=== PATIENT | male | born 1960 | race Caucasian/White ===

== ENCOUNTER 2020-02-17 12:50 | Emergency (ER) | payer MEDICARE, OTHER, SELFPAY ==
[~2020-02-17] VITALS: Ht 170.2 cm; Wt 99.8 kg
[2020-02-17 13:00] VITALS: BP 181/91
--- NOTE | 2020-02-17 13:05 | NUR ---
PT C/O SORE THROAT AND COUGH FOR 4 DAYS. DENIES FEVER, MYALGIA, N/V/D, OR SICK CONTACT. PMH: HTN, DM
--- NOTE | 2020-02-17 13:27 | NUR ---
NOVEL SWAB COLLECTED AND SENT TO THE TENT.
[2020-02-17 14:13] VITALS: BP 171/81
--- NOTE | 2020-02-17 14:13 | NUR ---
Patient discharged with v/s stable. Written and verbal after care instructions given and explained. Patient verbalized understanding. Ambulatory with steady gait. All questions addressed prior to discharge. Advised to follow up with PMD.
--- NOTE | 2020-02-18 23:15 | NUR ---
Covid results received from lab. Results = postive. Hard copy requested from lab and placed in infection controls mailbox.
== END 2020-02-17 14:13 | disposition home or self-care (01) ==
LOC: MED 12:50
DX: U07.1 COVID-19 (principal); J02.9 Acute pharyngitis, unspecified; E11.9 Type 2 diabetes mellitus without complications; I10 Essential (primary) hypertension
CPT/HCPCS: 99283; U0003

== ENCOUNTER 2022-05-31 15:21 | Emergency (ER) | payer MEDICARE, OTHER ==
[~2022-05-31] VITALS: Ht 152.4 cm; Wt 96.2 kg
[2022-05-31 15:25] VITALS: BP 163/82
--- NOTE | 2022-05-31 15:32 | NUR ---
PT AMB TO BED 11
[2022-05-31 16:00] LABS: BASOPHILS # (AUTO) 0.1 K/uL (0.00-0.22); BASOPHILS % (AUTO) 1.1 % (0.0-2.0); EOSINOPHILS # (AUTO) 0.1 K/uL (0-0.4); EOSINOPHILS % (AUTO) 1.4 % (0.0-4.0); HEMOGLOBIN 16.1 g/dL (12.0-18.0); LYMPHOCYTES # (AUTO) 1.6 K/uL (2.0-11.5); LYMPHOCYTES % (AUTO) 18.3 % (20.5-51.1); MEAN CORPUSCULAR HEMOGLOBIN 30 pg (27-31); MEAN CORPUSCULAR HGB CONC 34 g/dL (33-37); MEAN CORPUSCULAR VOLUME 89.2 fL (80-94); MONOCYTES # (AUTO) 0.6 K/uL (0.8-1.0); MONOCYTES % (AUTO) 7.3 % (1.7-9.3); NEUTROPHILS # (AUTO) 6.3 K/uL (1.8-7.7); NEUTROPHILS % (AUTO) 71.9 % (42.2-75.2); PLATELET COUNT (AUTO) 182 K/uL (140-450); RED BLOOD CELL COUNT(AUTO) 5.38 MIL/uL (4.20-6.10); RED CELL DISTRIBUTION WIDTH 13.8 % (11.6-13.7); WHITE BLOOD COUNT (AUTO) 8.8 K/uL (4.8-10.8)
[2022-05-31 16:30] LABS: ALBUMIN -0.7 g/dL (3.4-5.0); ANION GAP 13.9 (8-16); CARBON DIOXIDE 23.7 mmol/L (21-32); CREATININE 0.9 mg/dL (0.6-1.3); POTASSIUM 3.6 mmol/L (3.5-5.1); TOTAL BILIRUBIN 0.5 mg/dL (0.0-1.0)
[2022-05-31] MEDS ORDERED: APIX5TAB PO (16:47)
[2022-05-31 17:41] VITALS: BP 122/74
--- NOTE | 2022-05-31 17:46 | NUR ---
Patient discharged with v/s stable. Written and verbal after care instructions given and explained. Patient alert, oriented and verbalized understanding of instructions. Ambulatory with steady gait. All questions addressed prior to discharge. ID band removed. Patient advised to follow up with PMD. Rx of ELIQUIS given. Patient educated on indication of medication including possible reaction and side effects. Opportunity to ask questions provided and answered.
== END 2022-05-31 17:41 | disposition home or self-care (01) ==
LOC: MED 15:21
DX: I48.91 Unspecified atrial fibrillation (principal); R00.2 Palpitations; R06.02 Shortness of breath; E11.9 Type 2 diabetes mellitus without complications; I10 Essential (primary) hypertension; Z79.01 Long term (current) use of anticoagulants
CPT/HCPCS: 36415; 71045; 80053; 83880; 84484; 85025; 93005; 99291